=== PATIENT | male | born 1955 | race Caucasian/White ===

== ENCOUNTER 2024-01-18 11:03 | Emergency (ER) | payer MEDICARE, OTHER ==
[2024-01-18 11:34] LABS: BASOPHILS ABSOLUTE AUTO 0.02 K/uL (0.00-0.20); BASOPHILS PERCENT AUTO 0.3 % (0.0-2.0); EOSINOPHILS ABSOLUTE AUTO 0.12 K/uL (0.00-0.50); EOSINOPHILS PERCENT AUTO 1.7 % (0.0-5.0); HEMATOCRIT 32.4 % (39.0-49.0); LYMPHOCYTES ABSOLUTE AUTO 3.02 K/uL (0.50-3.50); LYMPHOCYTES PERCENT AUTO 42.6 % (10.0-50.0); MEAN CORPUSCULAR HEMOGLOBIN 35.3 pg (28.2-33.3); MEAN CORPUSCULAR VOLUME 103.8 fL (84.0-98.0); MONOCYTES ABSOLUTE AUTO 0.54 K/uL (0.00-1.00); MONOCYTES PERCENT AUTO 7.6 % (2.0-14.0); NEUTROPHILS ABSOLUTE AUTO 3.39 K/uL (1.40-7.00); NEUTROPHILS PERCENT AUTO 47.8 % (45.0-80.0); PLATELET COUNT,PLT 136 K/uL (150-350); RED BLOOD CELL COUNT 3.12 M/uL (4.33-5.41); RED CELL DISTRIBUTION WIDTH 13.6 % (11.2-14.1); WHITE BLOOD CELL COUNT,WBC 7.1 K/uL (4.0-10.2)
[2024-01-18 11:36] LABS: APPEARANCE,URINE SLIGHTLY CLOUDY; BILIRUBIN,URINE NEGATIVE (NEGATIVE); COLOR,URINE DARK YELLOW; GLUCOSE,URINE NEGATIVE (NEGATIVE); KETONES,URINE NEGATIVE (NEGATIVE); LEUKOCYTE ESTERASE,URINE NEGATIVE (NEGATIVE); NITRITE,URINE NEGATIVE (NEGATIVE); OCCULT BLOOD,URINE SMALL (NEGATIVE); PH,URINE 6.5 (5.0-9.0); PROTEIN,URINE NEGATIVE (NEGATIVE); UROBILINOGEN,URINE >=8.0 E.U./dL (0.2-1.0)
[2024-01-18 11:48] LABS: BACTERIA,URINE RARE /HPF (NONE TO FEW); WBC,URINE 0-5 /HPF
[2024-01-18 11:59] LABS: ALANINE AMINOTRANSFERASE,ALT 6 U/L (12-78); ALBUMIN 2.9 g/dL (3.4-5.0); ALKALINE PHOSPHATASE 92 IU/L (46-116); ASPARTATE AMNIOTRANSFERASE,AST 19 U/L (15-37); BILIRUBIN TOTAL 1.3 mg/dL (0.2-1.0); BLOOD UREA NITROGEN,BUN 27 mg/dL (7-18); CALCIUM 8.2 mg/dL (8.5-10.1); CARBON DIOXIDE,CO2 31.2 mmol/L (21.0-32.0); CHLORIDE,CL 103 mmol/L (98-107); CREATININE 1.43 mg/dL (0.51-1.17); ETHANOL BLOOD MEDICAL 0.001 g/dL (0.000-0.080); GLUCOSE RANDOM 99 mg/dL (70-99); POTASSIUM,K 4.1 mmol/L (3.5-5.1); PROTEIN TOTAL,TP 6.1 g/dL (6.4-8.2); SODIUM,NA 135 mmol/L (136-145)
[2024-01-18 12:01] LABS: ANION GAP 4.9 meq/L (7-15); ESTIMATED GFR 53 mL/min (>=60)
== END 2024-01-18 14:40 ==
LOC: LL.ED 11:03
DX: S06.6X0A Traumatic subarachnoid hemorrhage without loss of consciousness, initial encounter (principal); S06.310A Contusion and laceration of right cerebrum without loss of consciousness, initial encounter; I10 Essential (primary) hypertension; Z90.49 Acquired absence of other specified parts of digestive tract; Z79.899 Other long term (current) drug therapy; Z79.82 Long term (current) use of aspirin; W01.198A Fall on same level from slipping, tripping and stumbling with subsequent striking against other object, initial encounter
CPT/HCPCS: 36415; 70450; 80053; 80307; 81001; 83605; 84484; 85025; 93005; 93010; 99284; 99285; C1758

== ENCOUNTER 2025-04-28 08:52 | Emergency (ER) | payer MEDICARE ==
[2025-04-28] MEDS ORDERED: Sodium Chloride 0.9% 10 ML Syringe FLUSH PRN (09:52)
[2025-04-28 10:03] LABS: ALANINE AMINOTRANSFERASE,ALT 4 U/L (12-78); ASPARTATE AMNIOTRANSFERASE,AST 17 U/L (15-37); BASOPHILS ABSOLUTE AUTO 0.05 K/uL (0.00-0.20); BASOPHILS PERCENT AUTO 0.5 % (0.0-2.0); BILIRUBIN TOTAL 0.8 mg/dL (0.2-1.0); BLOOD UREA NITROGEN,BUN 20 mg/dL (7-18); CARBON DIOXIDE,CO2 30.0 mmol/L (21.0-32.0); CHLORIDE,CL 106 mmol/L (98-107); CREATININE 1.51 mg/dL (0.51-1.17); EOSINOPHILS ABSOLUTE AUTO 0.25 K/uL (0.00-0.50); EOSINOPHILS PERCENT AUTO 2.6 % (0.0-5.0); ESTIMATED GFR 49 mL/min (>=60); GLUCOSE RANDOM 101 mg/dL (70-99); IMMATURE GRAN ABSOLUTE AUTO 0.02 10^3/uL (0.00-0.04); IMMATURE GRAN PERCENT AUTO 0.2 % (0.0-0.4); LYMPHOCYTES ABSOLUTE AUTO 3.66 K/uL (0.50-3.50); LYMPHOCYTES PERCENT AUTO 38.8 % (10.0-50.0); MONOCYTES ABSOLUTE AUTO 0.44 K/uL (0.00-1.00); MONOCYTES PERCENT AUTO 4.7 % (2.0-14.0); NEUTROPHILS ABSOLUTE AUTO 5.02 K/uL (1.40-7.00); NEUTROPHILS PERCENT AUTO 53.2 % (45.0-80.0); PLATELET COUNT,PLT 172 K/uL (150-350); POTASSIUM,K 3.6 mmol/L (3.5-5.1); PRO B-TYPE NATRIUR PEPT,BNPPRO 333 pg/mL (0-125); PROTEIN TOTAL,TP 6.7 g/dL (6.4-8.2); RED BLOOD CELL COUNT 3.53 M/uL (4.33-5.41); RED CELL DISTRIBUTION WIDTH 13.3 % (11.2-14.1); SODIUM,NA 142 mmol/L (136-145); WHITE BLOOD CELL COUNT,WBC 9.4 K/uL (4.0-10.2)
[2025-04-28 10:10] LABS: PTT,PARTIAL THROMBOPLSTIN TIME 27.9 SEC (23.8-34.4)
[2025-04-28 10:26] LABS: INR 1.4 (0.9-1.1)
[2025-04-28] MEDS: Iopamidol 755 Mg/ML 100 ML Bottle IVPUSH ONE (11:22)
== END 2025-04-28 13:00 | disposition home or self-care (01) ==
LOC: LL.ED 08:52
DX: G45.9 Transient cerebral ischemic attack, unspecified (principal); E78.00 Pure hypercholesterolemia, unspecified; I10 Essential (primary) hypertension; Z86.73 Personal history of transient ischemic attack (TIA), and cerebral infarction without residual deficits; Z90.49 Acquired absence of other specified parts of digestive tract; Z79.899 Other long term (current) drug therapy; Z79.82 Long term (current) use of aspirin
CPT/HCPCS: 36415; 70450; 70496; 70498; 80053; 83605; 83735; 83880; 84484; 85025; 85379; 85610; 85730; 93005; 93010; 99284; 99285; Q9967